=== PATIENT | male | born 2005 | race Caucasian/White ===

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

== ENCOUNTER 2024-07-19 01:45 | Emergency (ER) | payer MEDICAID ==
[2024-07-19 01:55] VITALS: BP 112/74; PULSE 71
[2024-07-19] MEDS: Carbamide Peroxide 6.5% Otic Soln 15 ML Bottle EARBOTH ONE (02:07)
== END 2024-07-19 02:47 | disposition home or self-care (01) ==
LOC: JP.ED 01:45
DX: H61.23 Impacted cerumen, bilateral (principal); Z88.0 Allergy status to penicillin; Z88.8 Allergy status to other drugs, medicaments and biological substances
CPT/HCPCS: 99282; 99283; A9270